=== PATIENT | female | born 1935 | race American Indian/Alaskan Native ===

== ENCOUNTER 2020-11-29 20:44 | Inpatient (IN) | payer MEDICARE ==
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
[2020-11-29 22:20] LABS: Basophils % (Auto) 0.3 % (0.0-1.8); Eosinophils % (Auto) 0.7 % (0.0-4.3); Hemoglobin 12.7 gm/dl (10.1-14.3); Lymphocytes # (Auto) 0.9 K/mm3 (1.2-5.4); Mean Corpuscular HGB Conc 34 % (30-34); Mean Corpuscular Volume 111 fl (79-97); Monocytes # (Auto) 0.5 K/mm3 (0.0-0.8); Monocytes % (Auto) 8.7 % (0.0-7.3); Platelet Count 283 K/mm3 (140-440); Red Blood Count 3.33 M/mm3 (3.65-5.03); Red Cell Distribution Width 15.2 % (13.2-15.2)
[2020-11-29 22:30] LABS: Bacteria,Urine 1+ /HPF (Negative); Bilirubin,Urine NEG (Negative); Blood,Urine LG (Negative); Color,Urine Yellow (Yellow); Protein,Urine <15 mg/dL mg/dL (Negative); Urobilinogen,Urine < 2.0 mg/dL (<2.0)
--- NOTE | 2020-11-29 22:32 | XRay Report ---
. XR chest 1V ap INDICATION / CLINICAL INFORMATION: ams. COMPARISON: None available. FINDINGS: Patient is rotated to the right. Heart size is normal. Asymmetric prominence of the right hilar region may be related to patient rotat ion. No focal airspace consolidation. No sizable pleural effusion. No pneumothorax. IMPRESSION: No evidence of acute chest process. Signer Name: Maximo Barnes MD Signed: 11/29/2020 10:27 PM Workstation Name: [id number]
[2020-11-29 22:41] LABS: Alanine Aminotransferase 19 units/L (7-56); Albumin 3.6 g/dL (3.9-5); BUN/Creatinine Ratio 18; Blood Urea Nitrogen 14 mg/dL (7-17); Calcium 8.9 mg/dL (8.4-10.2); Hemolysis Index 6
--- NOTE | 2020-11-29 22:50 | Cat Scan Report ---
CT head without contrast INDICATION : Altered mental status TECHNIQUE: Axial imaging performed from the skull apex through the skull base without the use of con trast. All CT examinations performed at this facility utilize dose modulation, iterative reconstruct ion or weight-based dosing, when appropriate, to reduce radiation dose to as low as reasonably achiev able. Exam is mildly limited secondary to motion artifact secondary to patient's altered mental statu s. COMPARISON: None FINDINGS: Mild diffuse cerebral atrophy. There is periventricular white matter hypodensities which co uld be secondary to microangiopathic change. No acute intracranial hemorrhage or parenchymal abnormal ity. Ventricles are normal in size and appear symmetric. Soft tissues including the orbits appear normal. No acute osseous abnormality. Sinuses and mastoid air cells are clear. IMPRESSION: No acute abnormality within the limits of the exam. Signer Name: Donovan Villar MD Signed: 11/29/2020 10:45 PM Workstation Name: [id number]
[2020-11-29 23:23] LABS: Amphetamine Screen,Urine PRESUMPTIVE NEGATIVE; Benzodiazepines Screen,Urine PRESUMPTIVE NEGATIVE; Cannabinoid Screen,Urine PRESUMPTIVE NEGATIVE; Cocaine Screen,Urine PRESUMPTIVE NEGATIVE; Methadone Screen,Urine PRESUMPTIVE NEGATIVE; Opiate Screen,Urine PRESUMPTIVE NEGATIVE
[2020-11-29] MEDS ORDERED: SODIUM CHLORIDE 0.9% 1000 ML 1,000 ML IV ONE (23:57)
[2020-11-29] MEDS ORDERED: cefTRIAXone/NS 2 GM/100 ML 2 GM/100 ML BAG IV ONE (23:57)
[2020-11-30] MEDS ORDERED: HYDROmorphone 1 MG/1 ML INJ IV PRN (00:46)
[2020-11-30] MEDS ORDERED: ACETAMINOPHEN 325 MG TAB PO PRN (00:46)
[2020-11-30] MEDS ORDERED: ALBUTEROL 2.5 MG/3 ML NEBU IH PRN (00:46)
[2020-11-30] MEDS ORDERED: oxyCODONE /ACETAMINOPHEN 5-325MG TAB PO PRN (00:46)
[2020-11-30] MEDS ORDERED: ONDANSETRON 4 MG/2 ML INJ IV PRN (00:46)
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
[2020-11-30] MEDS: SODIUM CHLORIDE 0.45% 1000 ML 1,000 ML IV SCH (01:30)
[2020-11-30] MEDS ORDERED: cefTRIAXone/NS 2 GM/100 ML 2 GM/100 ML BAG IV SCH (10:00)
[2020-11-30] MEDS: IPRATROPIUM/ALBUTEROL SULFATE 3 ML AMPUL.NEB IH SCH ×2 (10:03→15:40)
[2020-11-30] MEDS: FAMOTIDINE 20 MG TAB PO SCH (10:05)
[2020-11-30] MEDS: HEPARIN 5,000 UNIT/1 ML VIAL SUB-Q SCH (10:06)
--- NOTE | 2020-11-30 15:34 | Progress Note ---
Assessment and Plan Assessment and plan: 85-year-old female with past medical history of hypertension, bipolar disorder, hyperlipidemia, dementia, and abnormal gait was brought to the emergency room for altered mental status, violent behavior and found to have UTI on examination. #Acute metabolic encephalopathy #Combative behavior #Delirium -Likely secondary to UTI -Urine WBC 19 -Patient started on Zosyn upon admission -Psychiatry consulted; appreciate recs. Also concurs with likely metabolic encephalopathy secondary to UTI -Will treat empirically with oral antibiotics (transitioning from IV antibiotics to oral antibiotics) and likely discharge tomorrow -Pending urine culture #Hypokalemia -Potassium 3.2 -Repleted. Continue to monitor #Hypertension -Continue home antihypertensives -IV hydralazine as needed for systolics greater than 160 #Dementia -Continue home medications #DVT prophylaxis -Continue subcutaneous heparin 5000 units every 8 hours #Discharge planning -Coronavirus PCR negative -Consulting case management for possible discharge back to detention on 2020 Disposition Plan: Pending possible discharge in a.m. Total Time Spent with Patient (Minutes): 35 History Interval history: No acute events overnight. Hospitalist Physical - Constitutional Vitals: Temp Pulse Resp BP Pulse Ox 98.4 F 75 12 120/83 99 11/29/20 21:34 11/30/20 13:01 11/30/20 13:01 11/30/20 15:00 11/30/20 15:00 General appearance: Present: no acute distress, well-nourished - EENT Eyes: Present: PERRL, EOM intact ENT: hearing intact, clear oral mucosa, dentition normal - Neck Neck: Present: supple, normal ROM - Respiratory Respiratory effort: normal - Cardiovascular Rhythm: regular Heart Sounds: Present: S1 & S2 - Extremities Extremities: no ischemia, pulses intact, pulses symmetrical, No edema, normal temperature, normal color Peripheral Pulses: within normal limits - Abdominal General gastrointestinal: soft, non-tender, non-distended, normal bowel sounds - Integumentary Integumentary: Present: clear, warm, dry - Psychiatric Psychiatric: appropriate mood/affect, cooperative - Neurologic Neurologic: CNII-XII intact, moves all extremities - Allied Health Allied health notes reviewed: nursing Results - Labs CBC & Chem 7: 11/29/20 22:10 11/29/20 22:10 Labs: Laboratory Last Values WBC 5.9 K/mm3 (4.5-11.0) 11/29/20 22:10 RBC 3.33 M/mm3 (3.65-5.03) L 11/29/20 22:10 Hgb 12.7 gm/dl (10.1-14.3) 11/29/20 22:10 Hct 37.0 % (30.3-42.9) 11/29/20 22:10 MCV 111 fl (79-97) H 11/29/20 22:10 MCH 38 pg (28-32) H 11/29/20 22:10 MCHC 34 % (30-34) 11/29/20 22:10 RDW 15.2 % (13.2-15.2) 11/29/20 22:10 Plt Count 283 K/mm3 (140-440) 11/29/20 22:10 Lymph % (Auto) 15.0 % (13.4-35.0) 11/29/20 22:10 [place] % (Auto) 8.7 % (0.0-7.3) H 11/29/20 22:10 Eos % (Auto) 0.7 % (0.0-4.3) 11/29/20 22:10 Baso % (Auto) 0.3 % (0.0-1.8) 11/29/20 22:10 Lymph # (Auto) 0.9 K/mm3 (1.2-5.4) L 11/29/20 22:10 [place] # (Auto) 0.5 K/mm3 (0.0-0.8) 11/29/20 22:10 Eos # (Auto) 0.0 K/mm3 (0.0-0.4) 11/29/20 22:10 Baso # (Auto) 0.0 K/mm3 (0.0-0.1) 11/29/20 22:10 Seg Neutrophils % 75.3 % (40.0-70.0) H 11/29/20 22:10 Seg Neutrophils # 4.4 K/mm3 (1.8-7.7) 11/29/20 22:10 Sodium 136 mmol/L (137-145) L 11/29/20 22:10 Potassium 3.2 mmol/L (3.6-5.0) L 11/29/20 22:10 Chloride 96.6 mmol/L (98-107) L 11/29/20 22:10 Carbon Dioxide 29 mmol/L (22-30) 11/29/20 22:10 Anion Gap 14 mmol/L 11/29/20 22:10 BUN 14 mg/dL (7-17) 11/29/20 22:10 Creatinine 0.8 mg/dL (0.6-1.2) 11/29/20 22:10 Estimated GFR > 60 ml/min 11/29/20 22:10 BUN/Creatinine Ratio 18 % 11/29/20 22:10 Glucose 111 mg/dL (65-100) H 11/29/20 22:10 Calcium 8.9 mg/dL (8.4-10.2) 11/29/20 22:10 Total Bilirubin 0.60 mg/dL (0.1-1.2) 11/29/20 22:10 AST 21 units/L (5-40) 11/29/20 22:10 ALT 19 units/L (7-56) 11/29/20 22:10 Alkaline Phosphatase 120 units/L (35-129) 11/29/20 22:10 Total Protein 7.1 g/dL (6.3-8.2) 11/29/20 22:10 Albumin 3.6 g/dL (3.9-5) L 11/29/20 22:10 Albumin/Globulin Ratio 1.0 % 11/29/20 22:10 Urine Color Yellow (Yellow) 11/29/20 22:09 Urine Turbidity Slightly-cloudy (Clear) 11/29/20 22:09 Urine pH 5.0 (5.0-7.0) 11/29/20 22:09 Ur Specific [place] 1.006 (1.003-1.030) 11/29/20 22:09 Urine Protein <15 mg/dl mg/dL (Negative) 11/29/20 22:09 Urine Glucose (UA) Neg mg/dL (Negative) 11/29/20 22:09 Urine Ketones Neg mg/dL (Negative) 11/29/20 22:09 Urine Blood Lg (Negative) 11/29/20 22:09 Urine Nitrite Neg (Negative) 11/29/20 22:09 Urine Bilirubin Neg (Negative) 11/29/20 22:09 Urine Urobilinogen < 2.0 mg/dL (<2.0) 11/29/20 22:09 Ur Leukocyte Esterase Lg (Negative) 11/29/20 22:09 Urine WBC (Auto) 19.0 /HPF (0.0-6.0) H 11/29/20 22:09 Urine RBC (Auto) 7.0 /HPF (0.0-6.0) 11/29/20 22:09 U Epithel Cells (Auto) 2.0 /HPF (0-13.0) 11/29/20 22:09 Urine Bacteria (Auto) 1+ /HPF (Negative) 11/29/20 22:09 Urine Yeast (Budding) Few /HPF 11/29/20 22:09 Salicylates < 0.3 mg/dL (2.8-20.0) L 11/29/20 22:10 Urine Opiates Screen Presumptive negative 11/29/20 22:09 Urine Methadone Screen Presumptive negative 11/29/20 22:09 Acetaminophen 5.0 ug/mL (10.0-30.0) L 11/29/20 22:10 Ur Barbiturates Screen Presumptive negative 11/29/20 22:09 Ur Phencyclidine Scrn Presumptive negative 11/29/20 22:09 Ur Amphetamines Screen Presumptive negative 11/29/20 22:09 U Benzodiazepines Scrn Presumptive negative 11/29/20 22:09 Urine Cocaine Screen Presumptive negative 11/29/20 22:09 U Marijuana (THC) Screen Presumptive negative 11/29/20 22:09 Drugs of Abuse Note Disclamer 11/29/20 22:09 Plasma/Serum Alcohol < 0.01 % (0-0.07) 11/29/20 22:10 Coronavirus (PCR) Negative (Negative) 11/30/20 07:45 Active Medications - Current Medications Current Medications: Generic Name Dose Route Start Last Admin Trade Name Freq PRN Reason Stop Dose Admin Acetaminophen 650 mg 11/30/20 00:46 Acetaminophen 325 Mg Tab PO Q4H PRN Pain MILD(1-3)/Fever >100.5/CONNELL Albuterol 2.5 mg 11/30/20 00:46 Albuterol 2.5 Mg/3 Ml Nebu IH Q3HRT PRN Shortness Of Breath Albuterol/Ipratropium 1 ampul 11/30/20 02:00 11/30/20 10:03 Ipratropium/Albuterol Sulfate 3 Ml Ampul.Neb IH Not Given Q6HRT KEVIN Famotidine 20 mg 11/30/20 10:00 11/30/20 10:05 Famotidine 20 Mg Tab PO 20 mg BID KEVIN Administration Heparin Sodium (Porcine) 5,000 unit 11/30/20 10:00 11/30/20 10:06 Heparin 5,000 Unit/1 Ml Vial SUB-Q 5,000 unit Q12HR KEVIN Administration Hydromorphone HCl 0.5 mg 11/30/20 00:46 Hydromorphone 1 Mg/1 Ml Inj IV Q3H PRN Pain , Severe (7-10) Sodium Chloride 1,000 mls @ 100 mls/hr 11/30/20 01:00 11/30/20 01:30 Nacl 0.45% 1000 Ml IV 100 mls/hr DIRECT KEVIN Administration Ceftriaxone Sodium 2 gm in 100 mls @ 200 mls/hr 11/30/20 10:00 11/30/20 10:04 Rocephin/Ns 2 Gm/100 Ml IV 200 mls/hr Q24HR KEVIN Administration Protocol Ondansetron HCl 4 mg 11/30/20 00:46 Ondansetron 4 Mg/2 Ml Inj IV Q8H PRN Nausea And Vomiting Oxycodone/Acetaminophen 1 tab 11/30/20 00:46 Oxycodone /Acetaminophen 5-325mg Tab PO Q6H PRN Pain, Moderate (4-6) Sodium Chloride 10 ml 11/30/20 10:00 11/30/20 10:06 Sodium Chloride 0.9% 10 Ml Flush Syringe IV 10 ml BID KEVIN Administration Sodium Chloride 10 ml 11/30/20 00:46 Sodium Chloride 0.9% 10 Ml Flush Syringe IV PRN PRN LINE FLUSH
[2020-12-01] MEDS: FAMOTIDINE 20 MG TAB PO SCH ×3 (00:05→21:18)
[2020-12-01] MEDS: HEPARIN 5,000 UNIT/1 ML VIAL SUB-Q SCH ×3 (00:05→21:18)
[2020-12-01] MEDS: IPRATROPIUM/ALBUTEROL SULFATE 3 ML AMPUL.NEB IH SCH ×4 (02:28→22:57)
[2020-12-01] MEDS: SODIUM CHLORIDE 0.45% 1000 ML 1,000 ML IV SCH ×2 (02:44→09:55)
[2020-12-01 06:32] LABS: Eosinophils # (Auto) 0.1 K/mm3 (0.0-0.4); Eosinophils % (Auto) 1.6 % (0.0-4.3); Hematocrit 33.6 % (30.3-42.9); Hemoglobin 11.5 gm/dl (10.1-14.3); Lymphocytes # (Auto) 1.1 K/mm3 (1.2-5.4); Lymphocytes % (Auto) 32.7 % (13.4-35.0); Mean Corpuscular HGB Conc 34 % (30-34); Mean Corpuscular Volume 112 fl (79-97); Monocytes # (Auto) 0.5 K/mm3 (0.0-0.8); Monocytes % (Auto) 14.6 % (0.0-7.3); Platelet Count 289 K/mm3 (140-440)
[2020-12-01 06:37] LABS: BUN/Creatinine Ratio 23; Blood Urea Nitrogen 18 mg/dL (7-17); Calcium 8.3 mg/dL (8.4-10.2); Hemolysis Index 5
[2020-12-01] MEDS ORDERED: POTASSIUM CHLORIDE ER 20 MEQ TAB PO NR (07:30)
[2020-12-01] MEDS ORDERED: LACTATED RINGERS 1,000 ML IV ONE (08:00)
[2020-12-01] MEDS ORDERED: levoFLOXacin 500 MG TAB PO SCH (10:00)
--- NOTE | 2020-12-01 12:47 | Consultation ---
History of Present Illness - Reason for Consult Consult date: 12/01/20 Reason for consult: agitation - History of Present Psychiatric Illness Per ER Note: Patient is a 85-year-old female who presents emergency room for altered mental status, violent behavior. Patient was sent from her personal correction. Patient brought in by EMS. EMS had the patient in restraints because she was so altered and combative. The restraints have been removed and the patient is calm at this time. Patient answering questions. Patient is alert and oriented x2. Patient is oriented to person and place. Patient is disoriented to time and situation. Patient denies pain. During my evaluation of Mrs Shea Blount, she is sitting on side of the bed eating lunch. She is calm, cooperative and pleasant. The patient smiles at me and greets me. She is a poor historian. She is confused and unable to tell me why she was admitted into the hospital or the date. She says "I think it's 2001." She asks If I could find out why she was admitted into the hospital. I tell her what the report said, she replies "who said that?" When asking did she want to harm herself in any way, the patient looked at me and said "no, no I don't want to do that." She also denied any hallucinations. She says "I don't see stuff or hear stuff." Psych History Unable to obtain from patient due to confusion PAST MEDICAL HISTORY: none reported Family Psychiatric History: None reported or documented SOCIAL HISTORY Unable to obtain from patient REVIEW OF SYSTEMS Constitutional: Negative for weight loss ENT: Negative for stridor Respiratory: Negative for cough or hemoptysis All other systems reviewed and are negative MENTAL STATUS EXAMINATION General Appearance and Behavior: Age appropriate, good hygiene, wearing appropriate clothes, sitting on side of bed, pleasant, polite Cooperation: Participating Psychomotor Behavior: unremarkable and within normal limits Mood: fine Affect and affective range: congruent with mood, smiling Thought Process: impaired Thought Content: None Speech: Normal volume, Regular rate and rhythm, Suicidal Ideation: Denies Homicidal Ideation: Denies Hallucinations: Denies Delusions: None elicited Impulse Control: Limited Insight and Judgment: Limited insight and poor judgment, Memory: Impaired Attention: Normal Orientation: Confused Assessment and Plan (1)Delirium Treatment Plan Restarted home psych meds Sitter: Per primary Medical: Per primary Disposition: Do not recommend acute psychiatric inpatient treatment Will follow for psych progress and med management Case staffed with Dr. Lew Medications and Allergies Allergies Allergy/AdvReac Type Severity Reaction Status Date / Time No Known Allergies Allergy Verified 11/29/20 21:37 Home Medications Medication Instructions Recorded Confirmed Last Taken Type Atorvastatin [Lipitor] 40 mg PO HS 11/30/20 11/30/20 11/28/20 History Megestrol Acetate 10 ml PO BID 11/30/20 11/30/20 11/29/20 History OLANzapine [ZyPREXA] 2.5 mg PO DAILY 11/30/20 11/30/20 11/29/20 History Trazodone HCl 50 mg PO HS 11/30/20 11/30/20 11/28/20 History hydroCHLOROthiazide 12.5 mg PO DAILY 11/30/20 11/30/20 11/29/20 History [Hydrochlorothiazide] Potassium Chloride [K-Dur] 40 meq PO ONCE@0730 tablet 12/01/20 Unknown Rx levoFLOXacin [Levaquin TAB] 500 mg PO Q24HR #5 tablet 12/01/20 Unknown Rx Active Meds: Active Medications Acetaminophen (Acetaminophen 325 Mg Tab) 650 mg PO Q4H PRN PRN Reason: Pain MILD(1-3)/Fever >100.5/CONNELL Albuterol (Albuterol 2.5 Mg/3 Ml Nebu) 2.5 mg IH Q3HRT PRN PRN Reason: Shortness Of Breath Albuterol/Ipratropium (Ipratropium/Albuterol Sulfate 3 Ml Ampul.Neb) 1 ampul IH Q6HRT ON LICENSE OF [facility] Last Admin: 11/30/20 15:40 Dose: 1 ampul Documented by: Famotidine (Famotidine 20 Mg Tab) 20 mg PO BID ON LICENSE OF [facility] Last Admin: 12/01/20 09:30 Dose: 20 mg Documented by: Heparin Sodium (Porcine) (Heparin 5,000 Unit/1 Ml Vial) 5,000 unit SUB-Q Q12HR ON LICENSE OF [facility] Last Admin: 12/01/20 09:30 Dose: 5,000 unit Documented by: Hydromorphone HCl (Hydromorphone 1 Mg/1 Ml Inj) 0.5 mg IV Q3H PRN PRN Reason: Pain , Severe (7-10) Sodium Chloride (Nacl 0.45% 1000 Ml) 1,000 mls @ 100 mls/hr IV DIRECT KEVIN Last Admin: 12/01/20 09:55 Dose: 100 mls/hr Documented by: Levofloxacin (Levofloxacin 500 Mg Tab) 500 mg PO Q24HR KEVIN; Protocol Stop: 12/06/20 10:01 Last Admin: 12/01/20 09:29 Dose: 500 mg Documented by: Ondansetron HCl (Ondansetron 4 Mg/2 Ml Inj) 4 mg IV Q8H PRN PRN Reason: Nausea And Vomiting Oxycodone/Acetaminophen (Oxycodone /Acetaminophen 5-325mg Tab) 1 tab PO Q6H PRN PRN Reason: Pain, Moderate (4-6) Sodium Chloride (Sodium Chloride 0.9% 10 Ml Flush Syringe) 10 ml IV BID ON LICENSE OF [facility] Last Admin: 12/01/20 09:31 Dose: 10 ml Documented by: Sodium Chloride (Sodium Chloride 0.9% 10 Ml Flush Syringe) 10 ml IV PRN PRN PRN Reason: LINE FLUSH Mental Status Exam - Vital signs Last Vital Signs Temp 98.2 F 12/01/20 04:32 Pulse 69 12/01/20 07:45 Resp 20 12/01/20 10:07 BP 126/62 12/01/20 10:07 Pulse Ox 97 12/01/20 06:00 Results Result Diagrams: 12/01/20 05:52 12/01/20 05:52 Abnormal lab results 12/01/20 12/01/20 Range/Units 05:52 05:52 WBC 3.4 L (4.5-11.0) K/mm3 RBC 3.00 L (3.65-5.03) M/mm3 MCV 112 H (79-97) fl MCH 38 H (28-32) pg [place] % (Auto) 14.6 H (0.0-7.3) % Lymph # (Auto) 1.1 L (1.2-5.4) K/mm3 Seg Neutrophils # 1.7 L (1.8-7.7) K/mm3 Potassium 3.2 L (3.6-5.0) mmol/L BUN 18 H (7-17) mg/dL Calcium 8.3 L (8.4-10.2) mg/dL All other labs normal.
--- NOTE | 2020-12-01 13:42 | Discharge Summary ---
Providers - Providers Date of Admission: 11/30/20 14:38 Date of discharge: 12/01/20 Attending physician: TAMIKA AHUJA MD 11/30/20 00:55 psychiatry consult [Consult to Mental Health] [CONS] Routine Reason For Exam: Violent combative behavior 11/30/20 15:04 Occupational Therapy Evaluate and Treat [CONS] Urgent Comment: Reason For Exam: to determine ADL status Physical Therapy Evaluation and Treat [CONS] Urgent Comment: Reason For Exam: To determine mobility status Primary care physician: JAILENE TREVINO Hospitalization Reason for admission: Altered mental status Condition: Good Pertinent studies: Reviewed. Procedures: None. Hospital course: The patient is a 85-year-old female with past medical history of hypertension, bipolar disorder, hyperlipidemia, dementia, and abnormal gait was brought to the emergency room for altered mental status, violent behavior and found to have UTI on examination. The patient was initially started on Zosyn upon admission. Psychiatry was consulted and concurred that the likely cause of acute delirium was likely secondary to metabolic encephalopathy secondary to UTI. The patient's mental status quickly improved, and the patient was transitioned to p.o. Levaquin 500 mg daily. The patient was tested for coronavirus, and was found to be negative. The patient was medically cleared for discharge back to her assisted living facility. Disposition: 01 HOME / SELF CARE / HOMELESS Final Discharge Diagnosis (Prints w/discharge instructions): Acute metabolic encephalopathy; UTI Time spent for discharge: 35 Core Measure Documentation - Palliative Care Palliative Care/ Comfort Measures: Not Applicable - Core Measures Any of the following diagnoses?: none - VTE Discharge Requirements Deep Vein Thrombosis/Pulmonary Embolism Present on Admission: No Has pt received <5 days of overlap therapy or INR<2.0: No (Not indicated) Anticoagulant overlap therapy prescribed at discharge: No Contraindication No Overlap Therapy order at DC: Not Indicated - Acute [place] Discharge Requirements Aspirin at discharge: No Reason for no aspirin on DC: Medical contraindication (Not indicated) REBECCA/ARB for LVSD if EF <40%: Not Applicable Reason for no REBECCA/ARB: Medical contraindication (Not indicated) Beta eliana at discharge: No Reason for no beta eliana on DC: Medical contraindication (Not indicated) Statin for LDL = or >100 mg/dl on DC: Not Applicable Reason for no statin on DC: Medical contraindication (Not indicated) - Heart Failure Discharge Requirements REBECCA/ARB for LVSD if EF <40%: Not Applicable Reason for no REBECCA/ARB: Medical contraindication (Not indicated) Beta eliana at discharge: No Reason for no beta eliana on DC: Medical contraindication (Not indicated) - Stroke Discharge Requirements Statin for LDL = or >70 mg/dl on DC: Not Applicable Reason for no statin on DC: Not Indicated Anticoag for atrial fib/atrial flutter: Not Applicable Reason for no anticoag for AF/F on DC: Not Indicated Antithrombotic for ischemic stroke: No Reason for no antithrombotic on DC: Not Indicated Exam - Constitutional Vitals: Temp Pulse Resp BP Pulse Ox 98.2 F 69 18 126/62 97 12/01/20 04:32 12/01/20 07:45 12/01/20 12:00 12/01/20 10:07 12/01/20 12:00 General appearance: Present: no acute distress - EENT Eyes: Present: PERRL, EOM intact ENT: hearing intact, clear oral mucosa, dentition normal - Neck Neck: Present: supple, normal ROM - Respiratory Respiratory effort: normal - Cardiovascular Rhythm: regular Heart Sounds: Present: S1 & S2 - Extremities Extremities: no ischemia, pulses intact, pulses symmetrical, No edema, normal temperature, normal color Peripheral Pulses: within normal limits - Abdominal General gastrointestinal: Present: soft, non-tender, non-distended, normal bowel sounds Female genitourinary: Present: deferred - Rectal Rectal Exam: deferred - Integumentary Integumentary: Present: clear, warm, dry - Musculoskeletal Musculoskeletal: strength equal bilaterally - Psychiatric Psychiatric: appropriate mood/affect, cooperative, other (Baseline dementia) - Neurologic Neurologic: CNII-XII intact, moves all extremities - Allied Health Allied health notes reviewed: nursing Plan Health Concerns: Return to ER if the patient experiences confusion, weakness, fevers, chills, chest pain/pressure, inability to tolerate oral intake, chest pain/pressure, shortness of breath, or inability to produce urine. Assessment: Patient being discharged home with po Levaquin daily to be completed on 12/06/2020. Follow up with: JAILENE TREVINO MD [Primary Care Provider] - 3-5 Days Prescriptions: levoFLOXacin [Levaquin TAB] 500 mg PO Q24HR #5 tablet
[2020-12-01] MEDS ORDERED: LORazepam 2 MG/ML VIAL IM PRN (18:38)
[2020-12-01] MEDS ORDERED: HALOPERIDOL LACTATE 5 MG/1 ML INJ IM PRN (20:46)
[2020-12-01] MEDS ORDERED: traZODone 50 MG TAB PO SCH (22:00)
[2020-12-02] MEDS: IPRATROPIUM/ALBUTEROL SULFATE 3 ML AMPUL.NEB IH SCH ×3 (02:51→09:30)
[2020-12-02 04:51] VITALS: BP 126/73
[2020-12-02 05:43] LABS: Blood Urea Nitrogen 16 mg/dL (7-17); Calcium 8.4 mg/dL (8.4-10.2); Hemolysis Index 12
[2020-12-02 05:49] LABS: Eosinophils # (Auto) 0.1 K/mm3 (0.0-0.4); Eosinophils % (Auto) 1.4 % (0.0-4.3); Hematocrit 34.8 % (30.3-42.9); Lymphocytes # (Auto) 1.3 K/mm3 (1.2-5.4); Lymphocytes % (Auto) 31.3 % (13.4-35.0); Mean Corpuscular HGB Conc 34 % (30-34); Mean Corpuscular Volume 111 fl (79-97); Monocytes # (Auto) 0.5 K/mm3 (0.0-0.8); Platelet Count 326 K/mm3 (140-440); Red Blood Count 3.12 M/mm3 (3.65-5.03); Red Cell Distribution Width 15.5 % (13.2-15.2)
[2020-12-02 05:50] LABS: BUN/Creatinine Ratio 23
--- NOTE | 2020-12-02 10:53 | Progress Note ---
Subjective - Reason for Consult Consult date: 12/02/20 Reason for consult: AMS - Chief Complaint Chief complaint: The patient was seen today. She is sitting up in bed, eating breakfast. She is calm, and cooperative. The patient is pleasant and polite. She is smiling. She says she had a shower and feels good. The patient denies SI/HI or hallucinations of any kind. REVIEW OF SYSTEMS Constitutional: Negative for weight loss ENT: Negative for stridor Respiratory: Negative for cough or hemoptysis All other systems reviewed and are negative MENTAL STATUS EXAMINATION General Appearance and Behavior: Age appropriate, good hygiene, wearing appropriate clothes, sitting on side of bed, pleasant, polite Cooperation: Participating Psychomotor Behavior: unremarkable and within normal limits Mood: good Affect and affective range: congruent with mood, smiling Thought Process: circumstantial Thought Content: None Speech: Normal volume, Regular rate and rhythm, Suicidal Ideation: Denies Homicidal Ideation: Denies Hallucinations: Denies Delusions: None elicited Impulse Control: Limited Insight and Judgment: Limited insight and poor judgment, Memory: Impaired Attention: Normal Orientation: Confused Assessment and Plan (1)Delirium Treatment Plan Restarted home psych meds Sitter: Per primary Medical: Per primary Disposition: Do not recommend acute psychiatric inpatient treatment Will follow for psych progress and med management Case staffed with Dr. Lew Mental Status Exam - Vital signs Last Vital Signs Temp 98.9 F 12/02/20 04:01 Pulse 96 H 12/02/20 04:01 Resp 16 12/02/20 04:01 BP 126/73 12/02/20 04:01 Pulse Ox 100 12/02/20 04:01
== END 2020-12-02 08:55 | disposition home health service (06) | DRG 689 ==
LOC: ED 20:44 → EEVIPCON 20:44 → 3A 11-30 00:46 → OBSVTOIN 11-30 14:38 → 3A 11-30 19:44
PROVIDERS: ADMIT Hospitalist; ATTEND Student in an Organized Health Care Education/Training Program
DX: N30.01 Acute cystitis with hematuria (principal); G93.41 Metabolic encephalopathy; F05 Delirium due to known physiological condition; Z20.822 Contact with and (suspected) exposure to COVID-19; I10 Essential (primary) hypertension; F31.9 Bipolar disorder, unspecified; E78.5 Hyperlipidemia, unspecified; F03.90 Unspecified dementia, unspecified severity, without behavioral disturbance, psychotic disturbance, mood disturbance, and anxiety; E87.6 Hypokalemia; Z79.899 Other long term (current) drug therapy
CPT/HCPCS: 36415; 70450; 71045; 80048; 80053; 80307; 80320; 81001; 83735; 84100; 85025; 87086; 94640; G0378; G0480; J0696; J1644; J2060; J7030; J7120; U0003

== ENCOUNTER 2021-05-06 13:15 | Emergency (ER) | payer MEDICARE ==
--- NOTE | 2021-05-06 13:29 | Emergency Department Report ---
ED General Adult HPI - General Chief complaint: Medical Clearance Stated complaint: medical clearance PUI?: No Time Seen by Provider: 05/06/21 13:18 Source: patient, EMS (Verbal report received from emergency medical services. EMS documentation not available at time of chart dictation ), RN notes reviewed, old records reviewed Mode of arrival: Stretcher Limitations: Other (Patient is demented) - History of Present Illness Initial comments: Primary CARE doctor: Dr. Shaheen Trevino Past medical history: Dementia, bipolar Current medications: HCTZ, amantadine, olanzapine, trazodone, atorvastatin, benazepril, gabapentin The patient is an 86-year-old female who was brought to the hospital by EMS for medical clearance. Patient herself denies pain and complaints. She is currently a resident at [facility]. She is reportedly brought to the emergency room by EMS because the patient had a change in her responsiveness. EMS reports Accu-Chek of 72 in the field. Patient given glucose in the field. Patient endorses no complaints at this time. Patient not accompanied by friends or family at this time for collateral information or additional information. -: This afternoon Improves with: none Worsens with: none Associated Symptoms: denies other symptoms - Related Data Home Medications Medication Instructions Recorded Confirmed Last Taken Atorvastatin [Lipitor] 40 mg PO HS 11/30/20 05/06/21 11/28/20 OLANzapine [ZyPREXA] 2.5 mg PO DAILY 11/30/20 05/06/21 11/29/20 Trazodone HCl 50 mg PO HS 11/30/20 05/06/21 11/28/20 hydroCHLOROthiazide 12.5 mg PO DAILY 11/30/20 05/06/21 11/29/20 [Hydrochlorothiazide] Gabapentin [Neurontin] 100 mg PO Q8HR 05/06/21 05/06/21 Unknown Memantine [Namenda] 5 mg PO QDAY 05/06/21 05/06/21 Unknown donepeziL [Aricept] 5 mg PO QDAY 05/06/21 05/06/21 Unknown Previous Rx's Medication Instructions Recorded Last Taken Type Levothyroxine [Synthroid] 25 mcg PO QAM #30 tablet 05/06/21 Unknown Rx Potassium Chloride 20 meq PO BID #60 packet 05/06/21 Unknown Rx Allergies Allergy/AdvReac Type Severity Reaction Status Date / Time No Known Allergies Allergy Verified 05/06/21 13:18 ED Review of Systems ROS: Stated complaint: HYPOGLYCEMIA Other details as noted in HPI Constitutional: denies: fever Eyes: denies: eye discharge ENT: denies: epistaxis Respiratory: denies: cough Cardiovascular: denies: chest pain Gastrointestinal: denies: abdominal pain Genitourinary: denies: dysuria Neurological: weakness, confusion, other (Baseline weakness and confusion) ED Past Medical Hx - Past Medical History Hx Hypertension: Yes Hx Psychiatric Treatment: Yes (bipolar) Hx Dementia: Yes - Social History Smoking Status: Never Smoker - Medications Home Medications: Home Medications Medication Instructions Recorded Confirmed Last Taken Type Atorvastatin [Lipitor] 40 mg PO HS 11/30/20 05/06/21 11/28/20 History OLANzapine [ZyPREXA] 2.5 mg PO DAILY 11/30/20 05/06/21 11/29/20 History Trazodone HCl 50 mg PO HS 11/30/20 05/06/21 11/28/20 History hydroCHLOROthiazide 12.5 mg PO DAILY 11/30/20 05/06/21 11/29/20 History [Hydrochlorothiazide] Gabapentin [Neurontin] 100 mg PO Q8HR 05/06/21 05/06/21 Unknown History Levothyroxine [Synthroid] 25 mcg PO QAM #30 tablet 05/06/21 Unknown Rx Memantine [Namenda] 5 mg PO QDAY 05/06/21 05/06/21 Unknown History Potassium Chloride 20 meq PO BID #60 packet 05/06/21 Unknown Rx donepeziL [Aricept] 5 mg PO QDAY 05/06/21 05/06/21 Unknown History ED Physical Exam - General Limitations: Other (Patient is demented and a poor historian) General appearance: in no apparent distress - Head Head exam: Present: atraumatic, normocephalic - Eye Eye exam: Present: normal appearance, PERRL, EOMI. Absent: nystagmus - ENT ENT exam: Present: normal exam, normal orophraynx, mucous membranes moist, normal external ear exam - Neck Neck exam: Present: normal inspection, full ROM. Absent: tenderness, meningism us - Respiratory Respiratory exam: Present: normal lung sounds bilaterally. Absent: respiratory distress, wheezes, rales, rhonchi, stridor, decreased breath sounds - Cardiovascular Cardiovascular Exam: Present: normal rhythm, bradycardia, normal heart sounds. Absent: tachycardia, irregular rhythm, systolic murmur, diastolic murmur, rubs, gallop - GI/Abdominal GI/Abdominal exam: Present: soft. Absent: distended, tenderness, guarding, rebound, rigid, pulsatile mass - Rectal Rectal exam: Present: normal inspection (Chaperoned by nurse Radu Guaman) - Extremities Exam Extremities exam: Present: normal inspection, full ROM, pedal edema (1+ edema in the bilateral lower extremities), other (2+ pulses noted in the bilateral upper and lower extremities. There is no palpable cord. negative Homans sign. Muscular compartments are soft. The pelvis is stable.). Absent: calf tenderness - Back Exam Back exam: Present: normal inspection, full ROM. Absent: tenderness, CVA tenderness (R), CVA tenderness (L), paraspinal tenderness, vertebral tenderness - Neurological Exam Neurological exam: Present: alert (Patient is alert to name. Patient follows commands.), reflexes normal, other (No facial droop. Tongue midline. Extraocular movements intact bilaterally. Facial sensation intact to light touch in V1, V2, V3 distribution bilaterally. 5 and a 5 strength in 4 extremities. Sensation intact to light touch in 4 extremities.) - Psychiatric Psychiatric exam: Present: flat affect - Skin Skin exam: Present: warm, dry, intact, normal color. Absent: rash ED Course Vital Signs 05/06/21 05/06/21 05/06/21 13:16 13:18 13:29 Temperature 98.2 F 96.4 F L Pulse Rate 59 L 60 Respiratory 14 18 Rate Blood Pressure Blood Pressure 109/58 130/61 [Left] O2 Sat by Pulse 96 100 98 Oximetry 05/06/21 05/06/21 05/06/21 13:31 13:45 14:01 Temperature Pulse Rate 67 Respiratory 14 Rate Blood Pressure 130/61 123/66 Blood Pressure [Left] O2 Sat by Pulse 98 99 98 Oximetry 05/06/21 05/06/21 14:19 14:28 Temperature 96.4 F L Pulse Rate 60 Respiratory 22 13 Rate Blood Pressure 130/61 Blood Pressure [Left] O2 Sat by Pulse 100 100 Oximetry - Reevaluation(s) Reevaluation #1: 05/06/21 14:27 Differential diagnosis, including but not limited to: Pneumonia, UTI, dementia, electrolyte derangement, thyroid derangement, intracranial lesion, transient alteration in awareness, iatrogenic sedation Assessment and plan: 86-year-old female, who is afebrile, with reassuring vital signs, with a nonfocal motor exam, awake, and alert to name, who follows command s, moves 4 extremities and protecting her airway, referred to the emergency room by personal fdc because of her transient alteration of mental status and weakness. Suspect that patient is demented, and may have onboard sedating medications, as noted in her HPI. We will check noncontrast CT scan of the brain, appropriate laboratory studies, urinalysis and EKG. Initial EKG significantly limited by motion artifact. Have verbally instructed nursing/care team to repeat EKG, with attention paid to motion artifact. X-ray the chest suggest mass versus pneumonia. Noncontrast CT scan of the chest will be obtained to evaluate for pneumonia. We will reassess after additional data points have resulted 05/06/21 17:23 Patient is observed in this emergency room for hours. Laboratory studies are essentially unremarkable, with the exception of TSH which is slightly elevated, suggestive of possible mild hypothyroidism. Noncontrast CT scan of the brain is negative for acute findings. X-ray of the chest was inconclusive, so noncontrast CT scan of the chest was obtained, which demonstrat ed no evidence of pneumothorax or pneumonia. Glucose acceptable at this time, mental status remains unchanged, patient has had no episodes of loss of consciousness or change in mental status while she has been here. She may follow-up with her outpatient primary care doctor at this time. ED Medical Decision Making - Lab Data Result diagrams: 05/06/21 13:35 05/06/21 13:35 Vital Signs 05/06/21 13:16 Temperature 98.2 F Pulse Rate 59 L Respiratory 14 Rate Blood Pressure 109/58 [Left] O2 Sat by Pulse 96 Oximetry - EKG Data -: EKG Interpreted by Mi EKG shows normal: sinus rhythm Rate: normal - EKG Data 05/06/21 14:25 The EKG is limited by significant motion artifact EKG shows a sinus rhythm, rate 75 bpm. Normal axis, QTC 4 9 9 ms, minimal motion artifact. There is low voltage. This is not a STEMI. 05/06/21 17:22 - Radiology Data Radiology results: pending, report reviewed, image reviewed CHEST 1 VIEW INDICATION / CLINICAL INFORMATION: Altered Mental Status,CP. COMPARISON: 11/29/2020 FINDINGS: SUPPORT DEVICES: None. HEART / MEDIASTINUM: Soft tissue prominence of the bilateral hilar regions. LUNGS / PLEURA: Focal airspace disease within the medial aspect of the right lung apex. No pneumothorax. ADDITIONAL FINDINGS: No significant additional findings. IMPRESSION: 1. Right apical airspace opacities with soft tissue prominence of the bilateral hilar regions, could reflect pneumonia and adenopathy. However, mass lesion cannot be excluded. CT chest with contrast is recommended, which could be performed in outpatient setting depending on patient's clinical status. Signer Name: Reji Gabriel MD Signed: 05/06/2021 12:55 PM Workstation Name: [id number] CT CHEST WITHOUT CONTRAST INDICATION / CLINICAL INFORMATION: Abnormal x-ray of the chest. TECHNIQUE: Axial CT images were obtained through the chest without contrast. All CT scans at this location are performed using CT dose reduction for [employer] by means of automated exposure control. COMPARISON: 05/06/2021 FINDINGS: HEART: No significant abnormality. CORONARY ARTERY CALCIFICATION: None. THORACIC AORTA: No significant abnormality. MEDIASTINUM / JORGE: No significant abnormality. Hilar prominence on the reference chest radiograph attributable to prominent bilateral main pulmonary arteries. PLEURA: No pleural effusion. No pneumothorax. LUNGS: No acute air space or interstitial disease. ADDITIONAL FINDINGS: None. UPPER ABDOMEN: 3.3 cm cyst upper pole right kidney. SKELETAL SYSTEM: No significant abnormality. IMPRESSION: 1. No acute abnormality. 2. Previous noted hilar prominence on chest radiograph is attributable to prominent, mildly dilated main pulmonary arteries. This can be seen in setting of underlying pulmonary arterial hypertension. Signer Name: Reji Gabriel MD Signed: 05/06/2021 1:59 PM Workstation Name: [id number] CT head/brain wo con INDICATION / CLINICAL INFORMATION: 86 years Female; Altere d Mental Status. TECHNIQUE: Routine CT head without contrast. All CT scans at this location are performed using CT dose reduction for ALARA by means of automated exposure control. COMPARISON: The study is compared to the previous CT of 11/29/2020 FINDINGS: BRAIN / INTRACRANIAL CONTENTS: There is mild cerebral white matter disease most consistent with microvascular angiopathy. Additionally, there is moderate cerebral atrophy with mild prominence of the ventricular system. There is incidental calcification within the basal ganglia. There is no clear CT evidence of acute intracranial hemorrhage or significant mass effect. ORBITS: No significant abnormality of visualized orbits. SINUSES / MASTOIDS: No significant abnormality in the visualized paranasal sinuses or mastoid air cells. CRANIOCERVICAL JUNCTION: No significant abnormality. ADDITIONAL FINDINGS: None. IMPRESSION: 1. There is continued mild microvascular angiopathy and moderate cerebral atrophy as described without CT ends of acute intracranial hemorrhage. Signer Name: Messi Malcolm MD Signed: 05/06/2021 1:59 PM Workstation Name: [id number] Critical care attestation.: If time is entered above; I have spent that time in minutes in the direct care of this critically ill patient, excluding procedure time. ED Disposition Clinical Impression: Transient alteration of awareness, Dementia, Hypokalemia, Elevated TSH, Abnormal CT scan, chest, Abnormal chest x-ray Disposition: [address] [place] [address] Is pt being admited?: No Does the pt Need Aspirin: No Condition: Good Additional Instructions: The patient was not found to have an emergent medical condition during her emergency room evaluation. Patient had a number of incidental abnormal findings, including potassium of 3.0, and slightly elevated TSH. The patient also had x-ray of the chest, and noncontrast CT scan of the chest which did not demonstrate any emergent findings, but did demonstrate nonspecific abnormal findings which be followed up by outpatient primary care physician. Recommend that primary care doctor contact medical records department to obtain copies of laboratory studies and radiology studies, and follow-up on nonemergent incidental abnormal findings within the next 2 weeks. Patient in the meantime may take the potassium supplementation as directed, and Synthroid as directed. Patient on a number of sedating medications, recommend a primary care doctor reevaluate current prescribed medications, consider de-escalation or disco ntinuing medications which are sedating. Please return to the emergency room right away with new pain, worsened pain, migration of pain, projectile vomiting, change in mental status, confusion, inability tolerate liquid feeds, new, worsened or different symptoms not present on the initial emergency room evaluation Referrals: SHAHEEN TREVINO MD [Primary Care Provider] - 3-5 Days
--- NOTE | 2021-05-06 14:00 | XRay Report ---
CHEST 1 VIEW INDICATION / CLINICAL INFORMATION: Altered Mental Status,CP. COMPARISON: 11/29/2020 FINDINGS: SUPPORT DEVICES: None. HEART / MEDIASTINUM: Soft tissue prominence of the bilateral hilar regions. LUNGS / PLEURA: Focal airspace disease within the medial aspect of the right lung apex. No pneumothor ax. ADDITIONAL FINDINGS: No significant additional findings. IMPRESSION: 1. Right apical airspace opacities with soft tissue prominence of the bilateral hilar regions, could reflect pneumonia and adenopathy. However, mass lesion cannot be excluded. CT chest with contrast is recommended, which could be performed in outpatient setting depending on patient's clinical status. Signer Name: Reij Gabriel MD Signed: 05/06/2021 1:55 PM Workstation Name: [id number]
[2021-05-06 14:34] LABS: INR 0.94 (0.87-1.13)
[2021-05-06 14:35] LABS: Eosinophils % (Auto) 0.6 % (0.0-4.3); Hematocrit 38.7 % (30.3-42.9); Hemoglobin 13.2 gm/dl (10.1-14.3); Lymphocytes # (Auto) 1.2 K/mm3 (1.2-5.4); Lymphocytes % (Auto) 18.7 % (13.4-35.0); Mean Corpuscular HGB Conc 34 % (30-34); Mean Corpuscular Volume 106 fl (79-97); Monocytes # (Auto) 0.4 K/mm3 (0.0-0.8); Monocytes % (Auto) 6.8 % (0.0-7.3); Platelet Count 206 K/mm3 (140-440); Red Blood Count 3.65 M/mm3 (3.65-5.03); Red Cell Distribution Width 13.6 % (13.2-15.2)
[2021-05-06 14:36] LABS: Basophils % (Auto) 0.1 % (0.0-1.8)
--- NOTE | 2021-05-06 15:03 | Cat Scan Report ---
CT head/brain wo con INDICATION / CLINICAL INFORMATION: 86 years Female; Altered Mental Status. TECHNIQUE: Routine CT head without contrast. All CT scans at this location are performed using CT dos e reduction for ALARA by means of automated exposure control. COMPARISON: The study is compared to the previous CT of 11/29/2020 FINDINGS: BRAIN / INTRACRANIAL CONTENTS: There is mild cerebral white matter disease most consistent with micro vascular angiopathy. Additionally, there is moderate cerebral atrophy with mild prominence of the bear tricular system. There is incidental calcification within the basal ganglia. There is no clear CT jamilah dence of acute intracranial hemorrhage or significant mass effect. ORBITS: No significant abnormality of visualized orbits. SINUSES / MASTOIDS: No significant abnormality in the visualized paranasal sinuses or mastoid air elena ls. CRANIOCERVICAL JUNCTION: No significant abnormality. ADDITIONAL FINDINGS: None. IMPRESSION: 1. There is continued mild microvascular angiopathy and moderate cerebral atrophy as described withou t CT ends of acute intracranial hemorrhage. Signer Name: Messi Malcolm MD Signed: 05/06/2021 2:59 PM Workstation Name: [id number]
--- NOTE | 2021-05-06 15:03 | Cat Scan Report ---
CT CHEST WITHOUT CONTRAST INDICATION / CLINICAL INFORMATION: Abnormal x-ray of the chest. TECHNIQUE: Axial CT images were obtained through the chest without contrast. All CT scans at this [facility] ation are performed using CT dose reduction for ALARA by means of automated exposure control. COMPARISON: 05/06/2021 FINDINGS: HEART: No significant abnormality. CORONARY ARTERY CALCIFICATION: None. THORACIC AORTA: No significant abnormality. MEDIASTINUM / JORGE: No significant abnormality. Hilar prominence on the reference chest radiograph at tributable to prominent bilateral main pulmonary arteries. PLEURA: No pleural effusion. No pneumothorax. LUNGS: No acute air space or interstitial disease. ADDITIONAL FINDINGS: None. UPPER ABDOMEN: 3.3 cm cyst upper pole right kidney. SKELETAL SYSTEM: No significant abnormality. IMPRESSION: 1. No acute abnormality. 2. Previous noted hilar prominence on chest radiograph is attributable to prominent, mildly dilated main pulmonary arteries. This can be seen in setting of underlying pulmonary arterial hypertension. Signer Name: Reji Gabriel MD Signed: 05/06/2021 2:59 PM Workstation Name: [id number]
[2021-05-06 15:14] LABS: Alanine Aminotransferase 18 units/L (7-56); Albumin 3.6 g/dL (3.9-5); BUN/Creatinine Ratio 15; Blood Urea Nitrogen 15 mg/dL (7-17); Calcium 9.2 mg/dL (8.4-10.2); Hemolysis Index 19
[2021-05-06] MEDS ORDERED: POTASSIUM CHLORIDE ER 20 MEQ TAB PO ONE (15:17)
[2021-05-06 15:18] LABS: Bilirubin,Urine NEG (Negative); Blood,Urine LG (Negative); Color,Urine Yellow (Yellow); Mucus,Urine FEW /HPF; Protein,Urine <15 mg/dL mg/dL (Negative); Urobilinogen,Urine < 2.0 mg/dL (<2.0)
[2021-05-06 18:17] VITALS: BP 108/64
--- NOTE | 2021-05-07 11:09 | Electrocardiograph Report ---
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 Suggest repeat eKG. Electronically Signed On 05-07-2021 11:08:57 EDT by Omar Hernandez
--- NOTE | 2021-05-07 11:13 | Electrocardiograph Report ---
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 Electronically Signed On 05-07-2021 11:12:56 EDT by Omar Hernandez
== END 2021-05-06 18:18 ==
LOC: ED 13:15
DX: E87.6 Hypokalemia (principal); R40.4 Transient alteration of awareness; F03.90 Unspecified dementia, unspecified severity, without behavioral disturbance, psychotic disturbance, mood disturbance, and anxiety; R94.6 Abnormal results of thyroid function studies; R93.89 Abnormal findings on diagnostic imaging of other specified body structures; I10 Essential (primary) hypertension; F31.9 Bipolar disorder, unspecified
CPT/HCPCS: 36415; 70450; 71045; 71250; 80053; 80320; 81001; 82140; 82550; 82962; 83735; 84443; 84484; 85025; 85610; 87086; 93005; 99285; G0480